=== PATIENT | female | born 1990 | race Caucasian/White ===

== ENCOUNTER 2017-07-13 15:18 | Emergency (ER) | payer OTHER ==
[2017-07-14 09:09] LABS: NEGATIVE OBC STREP NEG; POSITIVE OBC STREP POS
== END 2017-07-13 16:04 | disposition home or self-care (01) ==
LOC: ER 15:18
DX: S01.551A Open bite of lip, initial encounter (principal); J02.9 Acute pharyngitis, unspecified; J45.909 Unspecified asthma, uncomplicated; F12.10 Cannabis abuse, uncomplicated; F10.10 Alcohol abuse, uncomplicated; Z88.6 Allergy status to analgesic agent; Z91.040 Latex allergy status; X58.XXXA Exposure to other specified factors, initial encounter; Y93.89 Activity, other specified; Y99.8 Other external cause status; Y92.89 Other specified places as the place of occurrence of the external cause
CPT/HCPCS: 87070; 87880; 99283

== ENCOUNTER 2019-05-31 15:20 | Emergency (ER) | payer MEDICAID, OTHER ==
[2017-07-13 15:20] VITALS: BP 133/79
[~2019-05-31 15:20] MED LIST: ALBU8.5H6 IH; SULF1TAB24 PO
[2019-05-31 15:38] LABS: BILIRUBIN,URINE NEGATIVE (NEG); CLARITY,URINE CLEAR; COLOR,URINE YELLOW; NITRITE,URINE NEGATIVE (NEG); PH,URINE 6.5; PROTEIN,URINE NEGATIVE (NEG-TRACE); UROBILINOGEN,URINE 0.2 mg/dL (0.2 mg/dL)
[2019-05-31 15:52] LABS: BACTERIA,URINE 0 /HPF (0-FEW); RBC,URINE 0 /HPF (0-2); SQUAMOUS EPITHELIAL CELL,UR MOD /LPF; WBC,URINE OCC /HPF (0-4)
== END 2019-05-31 16:35 | disposition left against medical advice (07) ==
LOC: ER 15:20
DX: R55 Syncope and collapse (principal); Z53.21 Procedure and treatment not carried out due to patient leaving prior to being seen by health care provider
CPT/HCPCS: 81001; 81025

== ENCOUNTER 2020-02-22 13:52 | Emergency (ER) | payer SELFPAY ==
[~2020-02-22] VITALS: Ht 157.5 cm; Wt 51.0 kg
--- NOTE | 2020-02-22 15:18 | PHYS DOC ---
Past Medical History Past Medical History: Asthma, STD Past Surgical History: , Other Additional Past Surgical Histo: Exploratory Lap, Nasal repair Smoking Status: Current Every Day Smoker Alcohol Use: Heavy Drug Use: Marijuana General Adult EDM: Chief Complaint: COUGH HPI: HPI: Patient is a 29 year old female, who presents emergency department with complaints of a cough, shortness of breath, and runny nose for last few days. 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 She denies any known exposure to COVID-19. The patient reports a history of asthma and seasonal allergies. She states she has not been taking any allergy medication. Patient reports that at first she thought that her symptoms were simply related to allergies but then she became worried and concerned that they might be due to COVID. Patient reports that earlier today she felt lightheaded and anxious. During the episode of anxiety her hands felt tingly. She currently denies any numbness, tingling, weakness, or anxiety. She denies any shortness of breath, wheezing, abdominal pain, nausea, vomiting, diarrhea, rash, or sore throat. The patient currently denies any pain. Review of Systems: Review of Systems: Complete ROS is negative unless otherwise noted in HPI. Heart Score: Risk Factors: Risk Factors: DM, Current or recent (<one month) smoker, HTN, HLP, family history of CAD, obesity. Risk Scores: Score 0 - 3: 2.5% MACE over next 6 weeks - Discharge Home Score 4 - 6: 20.3% MACE over next 6 weeks - Admit for Clinical Observation Score 7 - 10: 72.7% MACE over next 6 weeks - Early Invasive Strategies Allergies: Allergies: Allergies Coded Allergies Type Severity Reaction Last Updated Verified latex Allergy Intermediate hives 11/12/13 Yes ibuprofen Adverse Reaction Mild itch 11/12/13 Yes Physical Exam: PE: Constitutional: Well developed, well nourished, no acute distress, non-toxic appearance. [] HENT: Normocephalic, atraumatic, bilateral external ears normal, oropharynx moist, no oral exudates, nose normal. [] Eyes: PERRLA, EOMI, conjunctiva normal, no discharge. [] Neck: Normal range of motion, no stridor. [] Cardiovascular:Heart rate regular rhythm, no murmur [] Lungs & Thorax: Bilateral breath sounds clear to auscultation, my lungs [] Skin: Warm, dry, no erythema, no rash. [] Back: No tenderness Extremities: No cyanosis, no clubbing, ROM intact, no edema. [] Neurologic: Alert and oriented X 3, no focal deficits noted. [] Psychologic: Affect normal, judgement normal, mood normal. [] Current Patient Data: Labs: Laboratory Tests Test 02/22/20 14:04 POC Urine HCG, Qualitative Hcg negative (Negative) Vital Signs: Vital Signs Date Time Temp Pulse Resp B/P (MAP) Pulse Ox O2 Delivery O2 Flow Rate FiO2 02/22/20 14:30 98.3 84 16 104/63 (77) 96 Room Air 98.3 EKG: EKG: [] Radiology/Procedures: Radiology/Procedures: PROCEDURE: CHEST AP ONLY Single view chest dated 02/22/2020: No comparison available. Clinical Indication: Shortness of breath and cough. Findings: Single upright portable exam of the chest was performed. Heart size and mediastinal contours are within normal limits given technique. The lungs are clear without evidence of focal consolidation. Vascular interstitium is within normal limits. Impression:: Negative portable chest. [] Course & Med Decision Making: Course & Med Decision Making Pertinent Labs and Imaging studies reviewed. (See chart for details) 29-year-old female presents emergency department with complaints of a cough, runny nose, shortness of breath, anxiety, and concerns of COVID-19. hCG test was negative, chest x-ray is unremarkable. Patient's vital signs are stable in the emergency department. I advised the patient to follow COVID-19 quarantine instructions until results of COVID-19 test are available. Is also likely that the patient's symptoms are due to her history of allergies and asthma. I encouraged the patient to take [id number] antihistamine daily, encouraged her to avoid airway irritants. And to follow-up with her primary care doctor if symptoms persisted. Prescription was written for albuterol as the patient reported that she needed a refill. Patient verbalized an understanding of home care, medications, follow-up, and return to ED instructions and was in agreement with the plan of care. COVID-19 CRITERIA: The patient was evaluated during the global COVID-19 [facility], and that diagnosis was suspected/considered upon their initial presentation. Their evaluation, treatment and testing was consistent with current guidelines for patients who present with complaints or symptoms that may be related to COVID-19. [] Dragon Disclaimer: Dragon Disclaimer: This electronic medical record was generated, in whole or in part, using a voice recognition dictation system. Departure Departure Impression: Primary Impression: Allergic rhinitis Qualified Codes: J30.9 - Allergic rhinitis, unspecified Additional Impression: Person under investigation for COVID-19 Disposition: 01 HOME, SELF-CARE Condition: STABLE Referrals: NO PCP (PCP) Patient Instructions: Allergic Rhinitis Additional Instructions: Fill the prescription(s) and use as directed. Recommend that you take 10 mg of generic or brand name Zyrtec (cetirizine) or Claritin at bedtime. You may take Tylenol or ibuprofen as needed for pain/fever. Increase clear fluids. Avoid triggers such as smoke, fragrance, dust, and pollen. Quit smoking. Follow the COVID-19 instruction listed below, return to the ER if symptoms worsen. You have been tested for or diagnosed with COVID-19. It is an infection caused by a new type of coronavirus. COVID-19 will cause cold-like or mild flu symptoms in most. It can cause more severe symptoms like problems breathing in some. There is no treatment for COVID-19. The body will clear the infection over time. Self-care will help to ease discomfort. Steps to Take: Self-Care Rest as needed. Healthy habits may help you feel better. Steps include: Choose healthy foods including fruits and vegetables. Drink water throughout the day. Get plenty of sleep each night. If you smoke, try to quit. It may ease breathing. Avoid alcohol. Keep Others Healthy The virus can spread to others. Droplets are released every time you sneeze or cough. The droplets can get into the mouth, nose, or eyes of people near you and lead to infection. To lower the chances of spreading COVID-19 to others: Stay at home until your doctor has said it is safe to leave. If you tested positive this will mean staying isolated until both of the following are true: At least 7 days have passed since the start of illness. You are free of fever for at least 72 hours without the use of medicine. During this time: - Avoid public areas, events, or transportation. Do not return to work or school until your doctor has said it is safe to do so. - Call ahead if you need to go to a medical center. Let them know you may have COVID-19. It will help them guide you where to go. They may also ask you to wear a facemask when you come to the office. - If you call for emergency medical services, let them know you may have COVID- 19. While at home: - Try to avoid close contact with others. Stay about 6 feet away. - If possible, spend most of your time in a separate room from others. - Use a face mask if you will be in close contact with others such as sharing a room or vehicle. - Have someone wipe down common surfaces in the home. Use household train starter every day on areas like doorknobs, counters, or sinks. - Cough or sneeze into a tissue. Throw the tissue away right after use. If a tissue is not available, cough or sneeze into your elbow. - Wash your hands often. Wash them after sneezing or coughing. Use soap and water and wash for at least 20 seconds. Alcohol based hand hand glove cleaner can be used if soap and water is not available. - Do not prepare food for others. Avoid sharing personal items like forks, spoons, or toothbrushes. - Avoid close contact with pets while you are sick. There is no evidence of the virus passing to pets. This is a safety step until more is known about this virus. Isolation can be frustrating. Social interaction can help. Keep in touch with friends and family through phone and tech options. You can still interact with others in your home, just keep a safe distance of about 6 feet. Follow-up: Your doctors office will check in with you to see if there are any changes in your health. You may be asked to keep track of symptoms to share with them. They will also let you know when you are clear to be in public again. Problems to Look Out For: Contact your doctor if your recovery is not going as you expect. Get emergency care if you have problems such as: - Trouble breathing - Nonstop chest pain or pressure - Changes in awareness, confusion, or problems waking - Lips or face have bluish color - Worsening of symptoms If you think you have an emergency, call for emergency medical services right away. As taken from [facility] Albuterol Sulfate (VENTOLIN HFA INHALER) 18 Gm Hfa.aer.ad 2 PUFF INH Q4HRS PRN for WHEEZING for 30 Days, #1 INHALER 2 Refills Prov: ROCCO SHI APRN 02/22/20 COVID-19 Assessment: COVID-19 Patient Risks: Age 65 or older: No Sign of co-morbidity: No Exp to person + for COVID: No Exp to PUI: No Travel from affected area: No Lower respiratory symptoms: Yes Fever: No Other: No PPE Use: Full PPE with N95 mask or PAPR: Yes ROCCO SHI APRN Feb 22, 2020 15:18
[2020-02-22 15:41] VITALS: BP 106/66
--- NOTE | 2020-02-22 15:56 | RAD ---
Single view chest dated 02/22/2020: No comparison available. Clinical Indication: Shortness of breath and cough. Findings: Single upright portable exam of the chest was performed. Heart size and mediastinal contours are within normal limits given technique. The lungs are clear without evidence of focal consolidation. Vascular interstitium is within normal limits. Impression:: Negative portable chest. Electronically signed by: Shawn Munoz MD (02/22/2020 3:53 PM) MINNIE
[2020-02-22] MEDS ORDERED: VENTOLIN HFA18 GM INH (16:02)
--- NOTE | 2020-02-24 09:03 | NUR ---
IP: Informed pt of negative COVID test. Pt verbalized understanding.
== END 2020-02-22 16:15 | disposition home or self-care (01) ==
LOC: ER 13:52
DX: J30.9 Allergic rhinitis, unspecified (principal); Z20.828 Contact with and (suspected) exposure to other viral communicable diseases; F17.200 Nicotine dependence, unspecified, uncomplicated; F10.20 Alcohol dependence, uncomplicated; Y90.9 Presence of alcohol in blood, level not specified; Z91.040 Latex allergy status; Z88.8 Allergy status to other drugs, medicaments and biological substances
CPT/HCPCS: 71045; 81025; 99284; U0003

== ENCOUNTER 2021-04-03 10:16 | Emergency (ER) | payer MEDICAID, OTHER ==
[~2021-04-03] VITALS: Ht 157.5 cm; Wt 49.6 kg
[~2021-04-03 10:16] MED LIST changes: +VENTOLIN HFA18 GM INH
[2021-04-03 11:00] VITALS: BP 162/98
--- NOTE | 2021-04-03 11:08 | RAD ---
EXAM: Left shoulder, 3 views. HISTORY: Pain. Injury. COMPARISON: None. FINDINGS: 3 views of the left shoulder obtained. There is no fracture, dislocation or subluxation. IMPRESSION: No acute osseous finding. Electronically signed by: Pamela Marti MD (04/03/2021 11:06 AM) [id number]
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
[2021-04-03] MEDS ORDERED: HYDROcodone/APAP 5/325MG 1 TAB TABLET PO ONE (12:15)
[2021-04-03] MEDS ORDERED: TRAM50TA PO (12:27)
== END 2021-04-03 12:34 | disposition home or self-care (01) ==
LOC: ER 10:16
DX: S43.402A Unspecified sprain of left shoulder joint, initial encounter (principal); J45.909 Unspecified asthma, uncomplicated; F17.200 Nicotine dependence, unspecified, uncomplicated; W22.8XXA Striking against or struck by other objects, initial encounter; Y93.89 Activity, other specified; Y92.89 Other specified places as the place of occurrence of the external cause; Y99.8 Other external cause status
CPT/HCPCS: 73030; 81025; 99283